=== PATIENT | female | born 1935 | race Caucasian/White ===

== ENCOUNTER 2017-01-14 05:23 | Emergency (ER) | payer MEDICARE ==
[~2017-01-14] VITALS: Ht 162.6 cm; Wt 73.9 kg
[~2017-01-14 05:23] MED LIST: ACET650T10 PO; BIOT800T PO; CA C1TAB38 PO; CHOL400C2 PO; DIPH25CA44 PO; FOLI0.4T2 PO; FURO40TA4 PO; HYDR-2672 PO; LISI40TA PO; MECL25TA3 PO; MESA0.37 PO; METH2.5T PO; OMEP40CA5 PO; POTA10TA12 PO; PRED1TAB2 PO; VITA400C36 PO; orencia
--- NOTE | 2017-01-14 06:28 | PHYS DOC ---
Past Medical History Past Medical History: Arthritis, GERD, Hypertension, Other Additional Past Medical Histor: vertigo colitis Past Surgical History: Other Additional Past Surgical Histo: neurostimulator to back Alcohol Use: Occasionally Drug Use: None Adult General Chief Complaint Chief Complaint: HIP PAIN HPI HPI Patient is a 82 year old female who presents with right hip pain. Patient states she has known severe osteoarthritis and is scheduled for right total hip arthroplasty on 01/[address] White at [facility]. She states this morning her pain was severe with shooting/stabbing pains down her right leg. She took gabapentin and [place] but could not get relief from her pain. She arrives here by EMS and states her pain is starting to resolve. She denies any recent falls or trauma. No fevers or chills, hot/red skin over the hip joint. She lives at the [facility]. Review of Systems Review of Systems Constitutional: Denies fever or chills Respiratory: Denies cough or shortness of breath Cardiovascular: Denies chest pain GI: Denies abdominal pain Musculoskeletal: Reports hip pain Integument: Denies rash Current Medications Current Medications Current Medications Medications (Trade) Dose Ordered Sig/Ellyn Start Time Stop Time Status Last Admin Dose Admin Fentanyl Citrate (Fentanyl 2ml Vial) 50 mcg PRN Q15MIN PRN 01/14/17 06:30 01/15/17 06:29 01/14/17 06:40 50 MCG Allergies Allergies Allergies Coded Allergies Type Severity Reaction Last Updated Verified Penicillins Allergy Intermediate 11/22/14 No Sulfa (Sulfonamide Antibiotics) Allergy Intermediate 11/22/14 No rituximab Allergy Intermediate 08/30/14 Yes Physical Exam Physical Exam Constitutional: Well developed, well nourished, no acute distress, non-toxic appearance. HENT: Normocephalic, atraumatic, bilateral external ears normal, oropharynx moist, nose normal. Eyes: conjunctiva normal, no discharge. Cardiovascular: no edema. Lungs & Thorax: no respiratory distress. Abdomen: nondistended. Skin: Warm, dry, Extremities: right hip no deformity or swelling, mild generalized hip over hip joint, able to flex/extend at hip though flexion limited by pain, intact internal/external rotation with pain, dp/pt 2+, sensation intact to foot. Neurologic: Alert and oriented X 3 Current Patient Data Vital Signs Vital Signs Date Time Temp Pulse Resp B/P (MAP) Pulse Ox O2 Delivery O2 Flow Rate FiO2 01/14/17 05:36 98.1 99 19 189/81 (117) 97 Room Air 98.1 EKG EKG [] Radiology/Procedures Radiology/Procedures [] Course & Med Decision Making Course & Med Decision Making Pertinent Labs and Imaging studies reviewed. (See chart for details) Patient presents with hip pain. States she feels better but becomes tearful with exam. She declines XR, states she just had preop XR at [facility], no new trauma. Will give IM fentanyl to try to improve pain relief. She felt better after fentanyl here, requested discharge home. She plans to follow up with her orthopedic surgeon today when clinic opens. Recommend continue prescribed pain meds & proceed with surgery on . Come back for neurovascular compromise , focal neuro deficit, or otherwise worsening condition. Discharged home in stable & improved condition. [] Dragon Disclaimer Dragon Disclaimer This electronic medical record was generated, in whole or in part, using a voice recognition dictation system. Departure Departure Impression: Primary Impression: Right hip pain Disposition: HOME, SELF-CARE Condition: IMPROVED Referrals: IJEOMA DIETRICH DO (PCP) Patient Instructions: Hip Pain Additional Instructions: You were seen in the emergency department today for hip pain. Your pain improved with treatment here & you declined having x-rays. Please contact your orthopedic surgeon today! Come back if unable to bear weight, for numbness or weakness in your leg, or any otherwise worsening condition. ALYSIA CHÁVEZ MD January 14, 2017 06:28
[2017-01-14] MEDS ORDERED: fentaNYL PF VIAL 100 MCG/2 ML VIAL IM PRN (06:30)
[2017-01-14 07:41] VITALS: BP 135/76
== END 2017-01-14 07:41 | disposition home or self-care (01) ==
LOC: ER 05:23
DX: M25.551 Pain in right hip (principal); K21.9 Gastro-esophageal reflux disease without esophagitis; I10 Essential (primary) hypertension; M16.11 Unilateral primary osteoarthritis, right hip; Z88.0 Allergy status to penicillin; Z88.2 Allergy status to sulfonamides; Z88.8 Allergy status to other drugs, medicaments and biological substances
CPT/HCPCS: 96372; 99284; J3010

== ENCOUNTER 2021-09-08 14:36 | Observation (INO) | payer MEDICARE ==
[~2021-09-08] VITALS: Ht 162.6 cm; Wt 69.1 kg
[~2021-09-08 14:36] MED LIST changes: -FOLI0.4T2 PO; +FOLI0.4T5 PO; -HYDR-2672 PO; +HYDR-2769 PO; +LISI-130 PO; -LISI40TA PO; +MECL-75 PO; -MECL25TA3 PO; -MESA0.37 PO; +MESA0.372 PO; -OMEP40CA5 PO; +OMEP40CA7 PO; -POTA10TA12 PO; +POTASSIUM CHLO10 ME1 PO; +VITA-8 PO; -VITA400C36 PO
[2021-09-08] MEDS ORDERED: IV NORMAL SALINE 1000ML BAG 1,000 ML IV SCH (14:45)
[2021-09-08 14:55] LABS: BASO # 0.1 x10^3/uL (0.0-0.2); BASO % 1 % (0-3); EOS # 0.1 x10^3/uL (0.0-0.7); EOS % 1 % (0-3); HEMATOCRIT 34.8 % (36.0-47.0); HEMOGLOBIN 10.9 g/dL (12.0-15.5); LYMPH # 1.1 x10^3/uL (1.0-4.8); LYMPH % 15 % (24-48); MEAN CORPUSCULAR HEMOGLOBIN 27 pg (25-35); MEAN CORPUSCULAR HGB CONC 31 g/dL (31-37); MEAN CORPUSCULAR VOLUME 86 fL (79-100); MONO # 0.9 x10^3/uL (0.0-1.1); MONO % 12 % (0-9); NEUT # 5.4 x10^3/uL (1.8-7.7); NEUT % 71 % (31-73); PLATELET COUNT 324 x10^3/uL (140-400); RED BLOOD COUNT 4.06 x10^6/uL (3.50-5.40); RED CELL DISTRIBUTION WIDTH 22.5 % (11.5-14.5); WHITE BLOOD COUNT 7.5 x10^3/uL (4.0-11.0)
--- NOTE | 2021-09-08 14:57 | PHYS DOC ---
Past Medical History Past Medical History: Arthritis, GERD, Hypertension, Other Additional Past Medical Histor: vertigo, colitis, RHEUMATOID ARTHRITIS Past Surgical History: Other Additional Past Surgical Histo: neurostimulator to back Smoking Status: Former Smoker Alcohol Use: Occasionally Drug Use: None General Adult HPI: HPI: Patient is a 86 year old female with history of rheumatoid arthritis on Biologics, HTN who presents with slurred speech. LKW approximately 1300 today. Symptoms reportedly improving somewhat. Reports headache today. Was given tylenol prior to arrival. Blood glucose 120's for EMS. No blood thinners on NOV. Denies vision changes, weakness, numbness, facial assymmetry. Review of Systems: Review of Systems: Constitutional: Denies fever or chills. [] Eyes: Denies change in visual acuity. [] HENT: Denies nasal congestion or sore throat. [] Respiratory: Denies cough or shortness of breath. [] Cardiovascular: Denies chest pain or edema. [] GI: Denies abdominal pain, nausea, vomiting, bloody stools or diarrhea. [] : Denies dysuria. [] Musculoskeletal: Denies back pain or joint pain. [] Integument: Denies rash. [] Neurologic: + slurred speech and headache. No focal extremity weakness or sensory changes. [] Endocrine: Denies polyuria or polydipsia. [] Lymphatic: Denies swollen glands. [] Psychiatric: Denies depression or anxiety. [] Heart Score: C/O Chest Pain: No Current Medications: Current Medications Medications (Trade) Dose Ordered Sig/Ellyn Start Time Stop Time Status Last Admin Dose Admin Sodium Chloride 1,000 ml @ 1,000 mls/hr Q1H 09/08/21 14:45 09/08/21 15:44 UNV Allergies: Allergies: Allergies Coded Allergies Type Severity Reaction Last Updated Verified Penicillins Allergy Intermediate 11/22/14 No Sulfa (Sulfonamide Antibiotics) Allergy Intermediate 11/22/14 No rituximab Allergy Intermediate 08/30/14 Yes Physical Exam: PE: Constitutional: Well developed, well nourished, no acute distress, non-toxic appearance. [] HENT: Normocephalic, atraumatic Eyes: PERRLA, EOMI, conjunctiva normal, no discharge. [] Neck: Normal range of motion, no tenderness, supple, no stridor. [] Cardiovascular:Heart rate regular rhythm, no murmur [] Lungs & Thorax: Bilateral breath sounds clear to auscultation [] Abdomen: Bowel sounds normal, soft, no tenderness, no masses, no pulsatile masses. [] Skin: Warm, dry, no erythema, no rash. [] Neurologic: Alert, oriented to person, place, situation. cannot recall age. follows simple commands. EOMI Visual miranda intact No facial droop No extremity drift no sensory deficit no ataxia +1 dysarthria +1 aphasia (difficulty naming objects, cannot repeat phrases exactly) Psychologic: Affect normal, judgement normal, mood normal. [] EKG: EKG: [] Radiology/Procedures: Radiology/Procedures: [] Impression: [facility] [address] [place], [place] [id number] IMAGING REPORT Signed PATIENT: WING DOMINGO ACCOUNT: [id number] : 1935 LOCATION: ER AGE: 86 SEX: F EXAM STATUS: REG ER ORD. PHYSICIAN: KENNEY MONTANA MD REASON: SLURRED SPEECH PROCEDURE: CT CODE STROKE HEAD WO EXAMINATION: CT head without IV contrast. INDICATION:86 years, Female, slurred speech. Code stroke COMPARISON: None TECHNIQUE: Spiral acquisition of contiguous images from the skull base to the vertex were obtained. Sagittal and coronal 2D reformatted series were provided by the technologist. Soft tissue and bone window algorithms were reviewed. Exposure: One or more of the following individualized dose reduction techniques were utilized for this examination: 1. Automated exposure control 2. Adjustment of the mA and/or kV according to patient size 3. Use of iterative reconstruction technique. FINDINGS: Neither mass, midline shift, intracranial hemorrhage, acute/subacute ischemic changes, nor extraaxial fluid collections are seen. Moderate brain parenchymal volume loss. Supratentorial periventricular white matter hypodensities, indeterminate but most likely representing chronic microangiopathic disease. The paranasal sinuses, mastoid air cells, and middle ears are clear.The orbital contents appear within normal limits. IMPRESSION: 1. No evidence of acute intracranial abnormality. 2. Supratentorial periventricular white matter hypodensities, indeterminate but most likely representing chronic microangiopathic disease. FOR INTERNAL CODING PURPOSES Critical result: Findings discussed with KENNEY MONTANA MD at 09/08/2021 3:08 PM. RESULT CODE: (C) Electronically signed by: Kym Cabral MD (09/08/2021 3:10 PM) [facility] DICTATED and SIGNED BY: KYM CABRAL MD DATE: 09/08/21 [id number] 0 Course & Med Decision Making: Course & Med Decision Making Pertinent Labs and Imaging studies reviewed. (See chart for details) 86-year-old female presents with acute onset slurred speech. LKW 1300 today. No other deficits on exam. NIH =3 (cannot recall age, dysarthria, aphasia). Code stroke activated with CT/CTA head/neck. 1457 CT head without acute process. After returning from CT her speech is improving vastly. No evident dysarthria or aphasia is noted now. Evaluated at bedside with neurologist, Dr. Saez, and given improvement decision was made to hold off on tpa. Patient will be admitted to hospitalist for further treatment. [address] [employer] Disclaimer: Dragon Disclaimer: This electronic medical record was generated, in whole or in part, using a voice recognition dictation system. Departure Departure Impression: Primary Impression: TIA (transient ischemic attack) Additional Impressions: Dysarthria Aphasia Disposition: ADMITTED INPATIENT Admitting Physician: YINA Flynn) Condition: IMPROVED Referrals: IJEOMA DIETRICH DO (PCP) NIHSS Stroke Scale NIH Stroke Scale: NIH Stroke Scale Response (Comments) Value Level of Consciousness: 0 Alert/Responsive 0 LOC Questions: 1 Answers one correctly 1 LOC Commands: 0 Performs both tasks 0 Best Gaze: 0 Normal 0 Visual: 0 No visual loss 0 Facial Palsy: 0 Normal, symmetrical 0 Motor - Left Arm 0 No drift 0 Motor - Right Arm 0 No drift 0 Motor - Left Leg 0 No drift 0 Motor: Right Leg 0 No drift 0 Limb Ataxia: 0 Absent 0 Sensory: 0 No loss 0 Best Language: 1 Mild to mod aphasia 1 Dysathria: 1 Mild to moderate 1 Extinction and Inattention: 0 Normal 0 Total 3 KENNEY MONTANA MD Sep 08, 2021 14:57
[2021-09-08 15:06] LABS: PROTHROMBIN TIME PATIENT 12.4 SEC (11.7-14.0)
[2021-09-08 15:09] LABS: CALCIUM 8.3 mg/dL (8.5-10.1); CREATININE 0.9 mg/dL (0.6-1.0); GFR 59.2; POTASSIUM 3.4 mmol/L (3.5-5.1)
--- NOTE | 2021-09-08 15:12 | RAD ---
EXAMINATION: CT head without IV contrast. INDICATION:86 years, Female, slurred speech. Code stroke COMPARISON: None TECHNIQUE: Spiral acquisition of contiguous images from the skull base to the vertex were obtained. S agittal and coronal 2D reformatted series were provided by the technologist. Soft tissue and bone win elizabeth algorithms were reviewed. Exposure: One or more of the following individualized dose reduction techniques were utilized for thi s examination: 1. Automated exposure control 2. Adjustment of the mA and/or kV according to patient size 3. Use of iterative reconstruction technique. FINDINGS: Neither mass, midline shift, intracranial hemorrhage, acute/subacute ischemic changes, nor extraaxial fluid collections are seen. Moderate brain parenchymal volume loss. Supratentorial periventricular w karmen matter hypodensities, indeterminate but most likely representing chronic microangiopathic diseas e. The paranasal sinuses, mastoid air cells, and middle ears are clear.The orbital contents appear withi n normal limits. IMPRESSION: 1. No evidence of acute intracranial abnormality. 2. Supratentorial periventricular white matter hypodensities, indeterminate but most likely represen ting chronic microangiopathic disease. FOR INTERNAL CODING PURPOSES Critical result: Findings discussed with KENNEY MONTANA MD at 09/08/2021 3:08 PM. RESULT CODE: (C) Electronically signed by: Mireya Cabral MD (09/08/2021 3:10 PM) [facility]
[2021-09-08] MEDS ORDERED: CONTRAST GIVEN. MC PRN (15:15)
[2021-09-08] MEDS ORDERED: IOHEXOL 300 MG/ML 100ML VIAL. IV ONE (15:15)
[2021-09-08] MEDS ORDERED: ASPIRIN RECTAL 300 MG SUPP. PR PRN (15:30)
--- NOTE | 2021-09-08 15:42 | PDOC2 ---
NEUROLOGY CONSULT Date of Service DOS: DATE: 09/08/21 TIME: 15:34 Reason for Consult Reason for Consult: Stroke symptoms Referring Physician Referring Physician: Dr. Jarrett Source Source: Caregiver (Son), Chart review, Patient History of Present Illness History of Present Illness The patient is an 86-year-old right-handed female last known normal 1300 today. She was noticed to have slurred speech, difficulty getting her words out. She says that she does not not feel like she can get her words out. There is no prior history of stroke, seizure, or head injury. Note elevated blood pressures in the emergency department. She does not usually run that high. She has had no prior history of stroke, seizure, or head injury. She does have severe rheumatoid arthritis and mostly is in a wheelchair. She is on Biologics for treatment. During her time in the emergency department she has had marked improvement in her speech symptoms and continues to have a nonfocal examination. Son says that she has had some increasing memory loss over the last several months. Past Medical History Cardiovascular: HTN CENTRAL NERVOUS SYSTEM: Vertigo (Not recently) GI: GERD, Inflam bowel disease Rheumatologic: Rheumatoid arthritis Renal/: Chronic renal insuff (CKD III), UTI Past Surgical History Past Surgical History: Other (Nerve stimulator) Family History Family History: No pertinent hx Social History Social History , lives in assisted living, rare alcohol, no tobacco Current Medications Current Medications Current Medications Sodium Chloride 1,000 ml @ 1,000 mls/hr Q1H IV ; Start 09/08/21 at 14:45; Stop 09/08/21 at 15:44 Iohexol (Omnipaque 300 Mg/ml) 60 ml 1X ONCE IV Last administered on 09/08/21at 15:10; Start 09/08/21 at 15:15; Stop 09/08/21 at 15:16; Status DC Info (CONTRAST GIVEN -- Rx MONITORING) 1 each PRN DAILY PRN MC SEE COMMENTS; Start 09/08/21 at 15:15; Stop 09/10/21 at 15:14 Active Scripts Active Reported [orencia] Lisinopril 40 Mg Tablet 1 Tab PO DAILY Meclizine Hcl 25 Mg Tablet 25 Mg PO Q4HRS PRN Biotin 800 Mcg Tablet 1,000 Mcg PO DAILYWBKFT Calcium + D Soft Chewable Tab (Ca Carbonate/Vitamin D3/Vit K) 1 Each Tab.chew 1 Each PO BID Hydrocodone-Apap 10-325 (Hydrocodone Bit/Acetaminophen) 1 Each Tablet 0.5 Tab PO Q4HRS PRN Potassium Chloride 10 Meq Tablet.er 1 Tab PO QODAY Furosemide 40 Mg Tablet 1 Tab PO QODAY Apriso (Mesalamine) 0.375 Gm Cap.er.24h 2 Cap PO BID Omeprazole 40 Mg Capsule.dr 2 Cap PO DAILY Arthritis Pain Reliever (Acetaminophen) 650 Mg Tablet.er 1,300 Mg PO BID Allergy Medication (Diphenhydramine Hcl) 25 Mg Capsule 180 Mg PO DAILY Vitamin E (Vitamin E Mixed) 400 Unit Capsule 400 Unit PO DAILY Vitamin D (Cholecalciferol (Vitamin D3)) 400 Unit Capsule 400 Unit PO DAILY Prednisone 1 Mg Tablet 1 Mg PO DAILY Folic Acid 0.4 Mg Tablet 0.4 Mg PO DAILY Methotrexate (Methotrexate Sodium) 2.5 Mg Tablet 6 Tab PO WEEKLY Allergies Allergies: Coded Allergies: Penicillins (Unverified Allergy, Intermediate, 11/22/14) Sulfa (Sulfonamide Antibiotics) (Unverified Allergy, Intermediate, 11/22/14) rituximab (Verified Allergy, Intermediate, 08/30/14) ROS Review of System Negative for fever, chills, weight loss, shortness of breath, chest pain, indigestion, hematochezia, melena, and dysuria. Full 14-point review of systems is negative. Physical Exam Physical Examination General: Well-developed, well-nourished, white female, in no acute distress HEENT: Normocephalic andatraumatic.Temporal arteriespulsatile and nontender. Neck: Supple without bruit, no meningismus Musculoskeletal: Stability:see neurologic. Gait exam:see neurologic. Tone:see neurologic.Strength:see neurologic. Neurological: Mental Status:intact, orientation, memory, attention span/concentration, language, fund of knowledge normal. Cranial Nerves:Pupils equal and reactive to light, extraocular movements areintact, visual miranda are full to confrontation. Facial sensation is normal. There is no facial asymmetry. Vestibulo-ocular reflex is intact. Palate elevates and tongue protrudes in midline. All other cranial related problems are negative except as mentioned before.Reflexes:2+ and symmetric with flexor plantar responses. Motor:4/5 strength with normal tone and bulk. Coordination:Finger-nose finger and [id number] testing are normal. Rapid alternating movements and fine finger movements are intact. Gait:Not tested. Sensory:Normal pinprick, vibration, light touch, proprioception. Labs Labs Laboratory Tests Test 09/08/21 14:45 White Blood Count 7.5 x10^3/uL (4.0-11.0) Red Blood Count 4.06 x10^6/uL (3.50-5.40) Hemoglobin 10.9 g/dL (12.0-15.5) Hematocrit 34.8 % (36.0-47.0) Mean Corpuscular Volume 86 fL (79-100) Mean Corpuscular Hemoglobin 27 pg (25-35) Mean Corpuscular Hemoglobin Concent 31 g/dL (31-37) Red Cell Distribution Width 22.5 % (11.5-14.5) Platelet Count 324 x10^3/uL (140-400) Neutrophils (%) (Auto) 71 % (31-73) Lymphocytes (%) (Auto) 15 % (24-48) Monocytes (%) (Auto) 12 % (0-9) Eosinophils (%) (Auto) 1 % (0-3) Basophils (%) (Auto) 1 % (0-3) Neutrophils # (Auto) 5.4 x10^3/uL (1.8-7.7) Lymphocytes # (Auto) 1.1 x10^3/uL (1.0-4.8) Monocytes # (Auto) 0.9 x10^3/uL (0.0-1.1) Eosinophils # (Auto) 0.1 x10^3/uL (0.0-0.7) Basophils # (Auto) 0.1 x10^3/uL (0.0-0.2) Prothrombin Time 12.4 SEC (11.7-14.0) Prothromb Time International Ratio 0.9 (0.8-1.1) Activated Partial Thromboplast Time 29 SEC (24-38) Sodium Level 139 mmol/L (136-145) Potassium Level 3.4 mmol/L (3.5-5.1) Chloride Level 98 mmol/L (98-107) Carbon Dioxide Level 31 mmol/L (21-32) Anion Gap 10 (6-14) Blood Urea Nitrogen 14 mg/dL (7-20) Creatinine 0.9 mg/dL (0.6-1.0) Estimated GFR (Cockcroft-Gault) 59.2 Glucose Level 109 mg/dL (70-99) Calcium Level 8.3 mg/dL (8.5-10.1) Troponin I High Sensitivity 14 ng/L (4-50) Laboratory Tests Test 09/08/21 14:45 White Blood Count 7.5 x10^3/uL (4.0-11.0) Red Blood Count 4.06 x10^6/uL (3.50-5.40) Hemoglobin 10.9 g/dL (12.0-15.5) Hematocrit 34.8 % (36.0-47.0) Mean Corpuscular Volume 86 fL (79-100) Mean Corpuscular Hemoglobin 27 pg (25-35) Mean Corpuscular Hemoglobin Concent 31 g/dL (31-37) Red Cell Distribution Width 22.5 % (11.5-14.5) Platelet Count 324 x10^3/uL (140-400) Neutrophils (%) (Auto) 71 % (31-73) Lymphocytes (%) (Auto) 15 % (24-48) Monocytes (%) (Auto) 12 % (0-9) Eosinophils (%) (Auto) 1 % (0-3) Basophils (%) (Auto) 1 % (0-3) Neutrophils # (Auto) 5.4 x10^3/uL (1.8-7.7) Lymphocytes # (Auto) 1.1 x10^3/uL (1.0-4.8) Monocytes # (Auto) 0.9 x10^3/uL (0.0-1.1) Eosinophils # (Auto) 0.1 x10^3/uL (0.0-0.7) Basophils # (Auto) 0.1 x10^3/uL (0.0-0.2) Prothrombin Time 12.4 SEC (11.7-14.0) Prothromb Time International Ratio 0.9 (0.8-1.1) Activated Partial Thromboplast Time 29 SEC (24-38) Sodium Level 139 mmol/L (136-145) Potassium Level 3.4 mmol/L (3.5-5.1) Chloride Level 98 mmol/L (98-107) Carbon Dioxide Level 31 mmol/L (21-32) Anion Gap 10 (6-14) Blood Urea Nitrogen 14 mg/dL (7-20) Creatinine 0.9 mg/dL (0.6-1.0) Estimated GFR (Cockcroft-Gault) 59.2 Glucose Level 109 mg/dL (70-99) Calcium Level 8.3 mg/dL (8.5-10.1) Troponin I High Sensitivity 14 ng/L (4-50) Images Images CT head without IV contrast. INDICATION:86 years, Female, slurred speech. Code stroke COMPARISON: None TECHNIQUE: Spiral acquisition of contiguous images from the skull base to the vertex were obtained. Sagittal and coronal 2D reformatted series were provided by the technologist. Soft tissue and bone window algorithms were reviewed. Exposure: One or more of the following individualized dose reduction techniques were utilized for this examination: 1. Automated exposure control 2. Adjustment of the mA and/or kV according to patient size 3. Use of iterative reconstruction technique. FINDINGS: Neither mass, midline shift, intracranial hemorrhage, acute/subacute ischemic changes, nor extraaxial fluid collections are seen. Moderate brain parenchymal volume loss. Supratentorial periventricular white matter hypodensities, indet erminate but most likely representing chronic microangiopathic disease. The paranasal sinuses, mastoid air cells, and middle ears are clear.The orbital contents appear within normal limits. IMPRESSION: 1. No evidence of acute intracranial abnormality. 2. Supratentorial periventricular white matter hypodensities, indeterminate but most likely representing chronic microangiopathic disease. Assessment/Plan Assessment/Plan Impression: Transient ischemic attack symptoms, no evidence of stroke, most likely this is hypertensive encephalopathy. Early dementia, but she is bright and alert now Rheumatoid arthritis, hypertension, general debility Recommendations: Permissive hypertension for now Start aspirin Rehabilitation modalities MRI of the brain unless her stimulator is still present, then I would cancel this Tighten up blood pressure starting tomorrow Not a candidate for alteplase given the rapid resolution of symptoms Discussed with Drs. Galloway and Kolby Also discussed with patient's son. Thank you for letting me help with the patient's care. MELQUIADES WANG MD Sep 08, 2021 15:42
--- NOTE | 2021-09-08 15:48 | RAD ---
EXAMINATION: CTA HEAD AND NECK W/WO CONTRAST INDICATION:86 years, Female, slurred speech. TECHNIQUE: After bolus of intravenous contrast, volumetric CT data acquisition was acquired of the he ad and neck. Multiplanar reconstruction images to include MIP and 3-D reconstruction images are submi tted. Exposure: One or more of the following individualized dose reduction techniques were utilized for thi s examination: 1. Automated exposure control 2. Adjustment of the mA and/or kV according to patient size 3. Use of iterative reconstruction technique. COMPARISON: None FINDINGS: Any determination of stenosis is based on NASCET criteria. Head CTA: ICA: No stenosis, occlusion or aneurysm. Minimal atherosclerotic calcifications at the cavernous segm ents without significant stenosis. MCA: No stenosis, occlusion or aneurysm. GUSTAVO: No stenosis, occlusion or aneurysm. IT GENERALIST: No stenosis, occlusion or aneurysm. origin of the right ECA. Basilar artery: No stenosis, occlusion or aneurysm. Distal vertebral arteries: No stenosis, occlusion or aneurysm. CT angiogram neck: Aortic arch: Mild atherosclerotic disease. Left vertebral artery arises directly from the aortic arch . Common carotid arteries: No stenosis, occlusion or dissection. Atherosclerotic calcifications at the carotid bulbs without significant stenosis. Internal carotid arteries: No stenosis, occlusion or dissection. Retropharyngeal course of the right internal carotid artery. External carotid arteries: Patent Vertebral arteries: No stenosis, occlusion or dissection. Imaged lung apices demonstrate subpleural reticulations. Soft tissues appear normal. Bones: No pathologic osseous lesions. Severe degenerative changes in the cervical spine. Grade 1 ante rolisthesis of C2 over C3. IMPRESSION: No arterial stenosis or occlusion within the head or neck. FOR INTERNAL CODING PURPOSES Critical result: Findings discussed with KENNEY MONTANA MD at 09/08/2021 3:45 PM. RESULT CODE: (C) Electronically signed by: Mireya Cabral MD (09/08/2021 3:45 PM) [facility]
[2021-09-08] MEDS: ASPIRIN ENTERIC COATED 81 MG TABLET.DR. PO SCH (16:00)
[2021-09-08 16:05] LABS: CHOLESTEROL/HDL RATIO 2.7
[2021-09-08] MEDS: ACETAMINOPHEN 325 MG TABLET. PO PRN (16:29)
[2021-09-08 16:37] LABS: PLT ESTIMATE ADEQUATE (ADEQUATE); TOXIC GRANULATION SLIGHT
[2021-09-08 16:38] LABS: ANISOCYTOSIS MOD
[2021-09-08 16:39] LABS: ACANTHOCYTES OCC; OVALOCYTES OCC
--- NOTE | 2021-09-08 16:53 | PDOC1 ---
History and Physical Date of Admission Date of Admission DATE: 09/08/21 TIME: 16:48 History of Present Illness History of Present Illness Ms. Olivier is a 86 year old female who lives at the [facility]. Today, she was fine this AM, then near lunch time had a sudden change of confusion and an inablity to speak. Before lunch and she did not eat, she was confused and says she couldnt get words out. She is not aware of the date currently and is still a little confused compared to her baseline per her son. She has a history of rheumatoid arthritis on methotrexate , HTN w She complains of headache, and is getting her second dose of tylenol now. Blood glucose 120's for EMS. BP was greater than 200 in ER, now down to 180 No blood thinners taken Past Medical History Cardiovascular: HTN CENTRAL NERVOUS SYSTEM: Vertigo (Not recently) GI: GERD, Inflam bowel disease Rheumatologic: Rheumatoid arthritis Renal/: Chronic renal insuff (CKD III), UTI Past Surgical History Past Surgical History: Other (Nerve stimulator) Social History Smoke: No ALCOHOL: none Drugs: None Current Problem List Problem List Problems Medical Problems: (1) Aphasia Status: Acute (2) Dysarthria Status: Acute Current Medications Current Medications Current Medications Sodium Chloride 1,000 ml @ 1,000 mls/hr Q1H IV ; Start 09/08/21 at 14:45; Stop 09/08/21 at 15:44; Status DC Iohexol (Omnipaque 300 Mg/ml) 60 ml 1X ONCE IV Last administered on 09/08/21at 15:10; Start 09/08/21 at 15:15; Stop 09/08/21 at 15:16; Status DC Info (CONTRAST GIVEN -- Rx MONITORING) 1 each PRN DAILY PRN MC SEE COMMENTS; Start 09/08/21 at 15:15; Stop 09/10/21 at 15:14 Acetaminophen (Tylenol) 650 mg PRN Q6HRS PRN PO MILD PAIN / TEMP > 100.3'F; Start 09/08/21 at 15:30 Aspirin (Ecotrin) 81 mg DAILYWBKFT PO ; Start 09/08/21 at 16:00 Aspirin (Aspirin Rectal Supp) 300 mg PRN DAILY PRN ID IF UNABLE TO TAKE PO; Start 09/08/21 at 15:30 Active Scripts Active Reported [orencia] Lisinopril 40 Mg Tablet 1 Tab PO DAILY Meclizine Hcl 25 Mg Tablet 25 Mg PO Q4HRS PRN Biotin 800 Mcg Tablet 1,000 Mcg PO DAILYWBKFT Calcium + D Soft Chewable Tab (Ca Carbonate/Vitamin D3/Vit K) 1 Each Tab.chew 1 Each PO BID Hydrocodone-Apap 10-325 (Hydrocodone Bit/Acetaminophen) 1 Each Tablet 0.5 Tab PO Q4HRS PRN Potassium Chloride 10 Meq Tablet.er 1 Tab PO QODAY Furosemide 40 Mg Tablet 1 Tab PO QODAY Apriso (Mesalamine) 0.375 Gm Cap.er.24h 2 Cap PO BID Omeprazole 40 Mg Capsule.dr 2 Cap PO DAILY Arthritis Pain Reliever (Acetaminophen) 650 Mg Tablet.er 1,300 Mg PO BID Allergy Medication (Diphenhydramine Hcl) 25 Mg Capsule 180 Mg PO DAILY Vitamin E (Vitamin E Mixed) 400 Unit Capsule 400 Unit PO DAILY Vitamin D (Cholecalciferol (Vitamin D3)) 400 Unit Capsule 400 Unit PO DAILY Prednisone 1 Mg Tablet 1 Mg PO DAILY Folic Acid 0.4 Mg Tablet 0.4 Mg PO DAILY Methotrexate (Methotrexate Sodium) 2.5 Mg Tablet 6 Tab PO WEEKLY Allergies Allergies: Coded Allergies: Penicillins (Unverified Allergy, Intermediate, 11/22/14) Sulfa (Sulfonamide Antibiotics) (Unverified Allergy, Intermediate, 11/22/14) rituximab (Verified Allergy, Intermediate, 08/30/14) ROS Review of System Denies vision changes, weakness, numbness, facial assymmetry. General: No: Chills, Night Sweats, Fatigue, Malaise, Appetite, Other PSYCHOLOGICAL ROS: No: Anxiety, Behavioral Disorder, Concentration difficultie, Decreased libido, Depression, Disorientation, Hallucinations, Hostility, Irritablity, Memory difficulties, Mood Swings, Obsessive thoughts, Physical abuse, Sexual abuse, Sleep disturbances, Suicidal ideation, Other Eyes: No Blurry vision, No Decreased vision, No Double vision, No Dry eyes, No Excessive tearing, No Eye Pain, No Itchy Eyes, No Loss of vision, No Photophobia, No Scotomata, No Uses contacts, No Uses glasses, No Other HEENT: YES: Heacaches; No: Hearing change, Nasal congestion, Nasal discharge, Oral lesions, Sinus pain, Sore Throat, Epistaxis, Sneezing, Snoring, Tinnitus, Vertigo, Vocal changes, Other Hematological and Lymphatic: No: Bleeding Problems, Blood Clots, Blood Transfusions, Brusing, Night Sweats, Pallor, Swollen Lymph Nodes, Other ENDOCRINE: No: Breast Changes, Galactorrhea, Hair Pattern Changes, Hot Flashes, Malaise/lethargy, Mood Swings, Palpitations, Polydipsia/polyuria, Skin Changes, Temperature Intolerance, Unexpected Weight Changes, Other Respiratory: No: Cough, Hemoptysis, Orthopnea, Pleuritic Pain, Shortness of breath, SOB with excertion, Sputum Changes, Stridor, Tachypnea, Wheezing, Other Cardiovascular: No Chest Pain, No Palpitations, No Orthopnea, No Paroxysmal Noc. Dyspnea, No Edema, No Lt Headedness, No Other Gastrointestinal: No Nausea, No Vomiting, No Abdominal Pain, No Diarrhea, No Constipation, No Melena, No Hematochezia, No Other Genitourinary: No Dysuria, No Frequency, No Incontinence, No Hematuria, No Retention, No Discharge, No Urgency, No Pain, No Flank Pain, No Other, No , No , No , No , No , No , No Musculoskeletal: Yes Joint Pain, Yes Joint Stiffness, Yes Joint Swelling; No Gait Disturbance, No Muscle Pain, No Muscular Weakness, No Pain In:, No Swelling In:, No Other Neurological: No Behavorial Changes, No Bowel/Bladder ControlChng, No Confusion, No Dizziness, No Gait Disturbance, No Headaches, No Impaired Coord/balance, No Memory Loss, No Numbness/Tingling, No Seizures, No Speech Problems, No Tremors, No Visual Changes, No Weakness, No Other Skin: Yes Dry Skin Physical Exam General: Alert, Oriented X3, Cooperative, No acute distress HEENT: Atraumatic, PERRLA, Mucous membr. moist/pink Heart: S1S2, RRR, no gallops, no murmurs Extremities: No cyanosis Skin: No breakdown, No significant lesion Neuro: Normal speech, Normal tone Psych/Mental Status: Mood NL Vitals Vitals Vital Signs Date Time Temp Pulse Resp B/P (MAP) Pulse Ox O2 Delivery O2 Flow Rate FiO2 09/08/21 15:58 72 16 189/85 (119) 92 Room Air 09/08/21 14:38 97.7 97.7 Labs Labs Laboratory Tests Test 09/08/21 14:45 White Blood Count 7.5 x10^3/uL (4.0-11.0) Red Blood Count 4.06 x10^6/uL (3.50-5.40) Hemoglobin 10.9 g/dL (12.0-15.5) Hematocrit 34.8 % (36.0-47.0) Mean Corpuscular Volume 86 fL (79-100) Mean Corpuscular Hemoglobin 27 pg (25-35) Mean Corpuscular Hemoglobin Concent 31 g/dL (31-37) Red Cell Distribution Width 22.5 % (11.5-14.5) Platelet Count 324 x10^3/uL (140-400) Neutrophils (%) (Auto) 71 % (31-73) Lymphocytes (%) (Auto) 15 % (24-48) Monocytes (%) (Auto) 12 % (0-9) Eosinophils (%) (Auto) 1 % (0-3) Basophils (%) (Auto) 1 % (0-3) Neutrophils # (Auto) 5.4 x10^3/uL (1.8-7.7) Lymphocytes # (Auto) 1.1 x10^3/uL (1.0-4.8) Monocytes # (Auto) 0.9 x10^3/uL (0.0-1.1) Eosinophils # (Auto) 0.1 x10^3/uL (0.0-0.7) Basophils # (Auto) 0.1 x10^3/uL (0.0-0.2) Toxic Granulation Slight Platelet Estimate Adequate (ADEQUATE) Large Platelets Mod Anisocytosis Mod Ovalocytes Occ Acanthocytes Occ Prothrombin Time 12.4 SEC (11.7-14.0) Prothromb Time International Ratio 0.9 (0.8-1.1) Activated Partial Thromboplast Time 29 SEC (24-38) Sodium Level 139 mmol/L (136-145) Potassium Level 3.4 mmol/L (3.5-5.1) Chloride Level 98 mmol/L (98-107) Carbon Dioxide Level 31 mmol/L (21-32) Anion Gap 10 (6-14) Blood Urea Nitrogen 14 mg/dL (7-20) Creatinine 0.9 mg/dL (0.6-1.0) Estimated GFR (Cockcroft-Gault) 59.2 Glucose Level 109 mg/dL (70-99) Calcium Level 8.3 mg/dL (8.5-10.1) Troponin I High Sensitivity 14 ng/L (4-50) Triglycerides Level 74 mg/dL (0-150) Cholesterol Level 194 mg/dL (0-200) LDL Cholesterol, Calculated 106 mg/dL (0-100) VLDL Cholesterol, Calculated 15 mg/dL (0-40) Non-HDL Cholesterol Calculated 121 mg/dL (0-129) HDL Cholesterol 73 mg/dL (40-60) Cholesterol/HDL Ratio 2.7 Laboratory Tests Test 09/08/21 14:45 White Blood Count 7.5 x10^3/uL (4.0-11.0) Red Blood Count 4.06 x10^6/uL (3.50-5.40) Hemoglobin 10.9 g/dL (12.0-15.5) Hematocrit 34.8 % (36.0-47.0) Mean Corpuscular Volume 86 fL (79-100) Mean Corpuscular Hemoglobin 27 pg (25-35) Mean Corpuscular Hemoglobin Concent 31 g/dL (31-37) Red Cell Distribution Width 22.5 % (11.5-14.5) Platelet Count 324 x10^3/uL (140-400) Neutrophils (%) (Auto) 71 % (31-73) Lymphocytes (%) (Auto) 15 % (24-48) Monocytes (%) (Auto) 12 % (0-9) Eosinophils (%) (Auto) 1 % (0-3) Basophils (%) (Auto) 1 % (0-3) Neutrophils # (Auto) 5.4 x10^3/uL (1.8-7.7) Lymphocytes # (Auto) 1.1 x10^3/uL (1.0-4.8) Monocytes # (Auto) 0.9 x10^3/uL (0.0-1.1) Eosinophils # (Auto) 0.1 x10^3/uL (0.0-0.7) Basophils # (Auto) 0.1 x10^3/uL (0.0-0.2) Toxic Granulation Slight Platelet Estimate Adequate (ADEQUATE) Large Platelets Mod Anisocytosis Mod Ovalocytes Occ Acanthocytes Occ Prothrombin Time 12.4 SEC (11.7-14.0) Prothromb Time International Ratio 0.9 (0.8-1.1) Activated Partial Thromboplast Time 29 SEC (24-38) Sodium Level 139 mmol/L (136-145) Potassium Level 3.4 mmol/L (3.5-5.1) Chloride Level 98 mmol/L (98-107) Carbon Dioxide Level 31 mmol/L (21-32) Anion Gap 10 (6-14) Blood Urea Nitrogen 14 mg/dL (7-20) Creatinine 0.9 mg/dL (0.6-1.0) Estimated GFR (Cockcroft-Gault) 59.2 Glucose Level 109 mg/dL (70-99) Calcium Level 8.3 mg/dL (8.5-10.1) Troponin I High Sensitivity 14 ng/L (4-50) Triglycerides Level 74 mg/dL (0-150) Cholesterol Level 194 mg/dL (0-200) LDL Cholesterol, Calculated 106 mg/dL (0-100) VLDL Cholesterol, Calculated 15 mg/dL (0-40) Non-HDL Cholesterol Calculated 121 mg/dL (0-129) HDL Cholesterol 73 mg/dL (40-60) Cholesterol/HDL Ratio 2.7 VTE Prophylaxis Ordered VTE Prophylaxis Devices: Yes VTE Pharmacological Prophylaxi: No Assessment/Plan Assessment/Plan accelerated hypertension, hypertensive emergency TIA code stroke called weakness, debility Rheumatoid arthritis htn Chronic diastolic CHF, lasix Justifications for Admission TIA Indications Hemodynamically unstable?: Yes Persistent neurologic signs?: No Cardiomyopathy/Valvular diseas: No Severe hypertension?: Yes Cardiac arrhythmia?: No Other Justification HARLAN PALMA MD Sep 08, 2021 16:53
[2021-09-08] MEDS: FUROSEMIDE 20 MG TABLET PO SCH (17:00)
[2021-09-08] MEDS ORDERED: HYDROcodone/APAP 5/325MG 1 TAB TABLET PO PRN (17:00)
[2021-09-08] MEDS ORDERED: POTASSIUM CHLORIDE 20 MEQ TABLET.ER. PO ONE (17:00)
[2021-09-08 18:00] VITALS: BP 191/86
--- NOTE | 2021-09-08 18:24 | EKG ---
[facility] [address] [place] [address] Test Date: 2021-09-08 Test Time: 15:18:10 Pat Name: WING DOMINGO Department: Room: 4 Gender: F Filler Spreader: : [id number] Requested By: KENNEY MONTANA Order Number: [id number] Reading MD: Luis Alberto Akers Measurements Intervals [place] Rate: 77 P: -34 ID: [id number] QRS: -25 QRSD: 74 T: 0 QT: 392 QTc: 445 Interpretive Statements SINUS RHYTHM LEFTWARD AXIS CONSIDER LEFT VENTRICULAR HYPERTROPHY T ABNORMALITY IN INFERIOR LEADS ABNORMAL ECG Electronically Signed On 09-10-2021 10:23:00 QUALITY RN by Luis Alberto Akers
[2021-09-08 19:30] VITALS: BP 171/95
[2021-09-08] MEDS: ACETAMINOPHEN 325 MG TABLET. PO SCH (21:00)
[2021-09-08 23:26] VITALS: BP 181/82
[2021-09-09 03:35] VITALS: BP 218/86
[2021-09-09] MEDS: LISINOPRIL 20 MG TABLET PO SCH (05:20)
[2021-09-09 07:00] VITALS: BP 209/86
[2021-09-09] MEDS: PANTOPRAZOLE 40 MG TABLET.DR. PO SCH (07:30)
[2021-09-09] MEDS: ASPIRIN ENTERIC COATED 81 MG TABLET.DR. PO SCH (08:00)
[2021-09-09] MEDS ORDERED: NON FORMULARY ITEM (Biotin 1,000 MCG) PO SCH (08:00)
[2021-09-09] MEDS: predniSONE 1 MG TABLET PO SCH (09:00)
[2021-09-09] MEDS: ACETAMINOPHEN 325 MG TABLET. PO SCH ×2 (09:00→20:55)
[2021-09-09] MEDS: FUROSEMIDE 20 MG TABLET PO SCH (09:00)
[2021-09-09] MEDS ORDERED: LABETALOL 20 MG/4 ML DISP.SYRIN. IVP PRN (09:15)
[2021-09-09] MEDS ORDERED: hydrALAZINE 20 MG/ML VIAL. IVP PRN (09:15)
[2021-09-09 11:00] VITALS: BP 171/79
--- NOTE | 2021-09-09 13:34 | NUR ---
Bedside Swallow Evaluation completed. Please refer to full report in intervention section for additional information. Impressions: Mild pharyngeal dysphagia w/ immediate s/s aspiration w/ straw drinking of thin liquids. Cup drinking and spoon trials of thin liquids, trials of honey thin liquids, puree and solids were WFL and no s/s aspiration observed. Pt appears at low risk of aspiration for regular diet and thin liquids w/ general swallow precautions and eliminating straw drinking. Recommendations: Initiate regular diet w/ thin liquids/NO straws. General swallow precautions. ST f/u 1-2 visits to assess swallow safety on recommended diet. D/w pt, pt's 2 sons Brian and TYREL Hedrick-Opal and precations posted in room.
--- NOTE | 2021-09-09 13:50 | PDOC ---
PROGRESS NOTES Date of Service DATE: 09/09/21 TIME: 13:46 Assessment Problems Medical Problems: (1) Aphasia Status: Acute (2) Dysarthria Status: Acute Transient ischemic attack symptoms, no evidence of stroke, most likely this is hypertensive encephalopathy. She continues to have elevated blood pressure, nurse believes this is related to agitation when she is confused Early dementia Rheumatoid arthritis, hypertension, general debility Note elevated lipids and hemoglobin A1c Plan Tighten blood pressure parameters to 150/90 Aspirin Rehabilitation modalities No MRI due to spinal cord stimulator, I will repeat her head CT Lipid and glucose management per internal medicine Home if CT follow-up is negative and blood pressure controlled Discussed with patient's sons. Subjective Has some headache Objective Vital Signs Date Time Temp Pulse Resp B/P (MAP) Pulse Ox O2 Delivery O2 Flow Rate FiO2 09/09/21 09:27 72 205/86 09/09/21 03:35 98.1 22 92 Room Air 98.1 Intake and Output 09/09/21 07:00 Output Total 250 ml Balance -250 ml Output Urine Total 250 ml # Bowel Movements 1 PHYSICAL EXAM Temporal arteries pulsatile nontender Alert. Oriented to place and person, off on date. Names and repeats well except has trouble naming a stethoscope. PERRL. EOMI. CN: no focal findings. Muscle tone: normal. Muscle strength: 4/5 DTR: 1+ Plantar reflex: Flexor Gait: not examined in bed. Sensory exam: no abnormal findings. No cerebellar signs elicited. Review of Relevant I have reviewed the following items jesica (where applicable) has been applied. Labs Laboratory Tests Test 09/08/21 14:45 White Blood Count 7.5 x10^3/uL (4.0-11.0) Red Blood Count 4.06 x10^6/uL (3.50-5.40) Hemoglobin 10.9 g/dL (12.0-15.5) Hematocrit 34.8 % (36.0-47.0) Mean Corpuscular Volume 86 fL (79-100) Mean Corpuscular Hemoglobin 27 pg (25-35) Mean Corpuscular Hemoglobin Concent 31 g/dL (31-37) Red Cell Distribution Width 22.5 % (11.5-14.5) Platelet Count 324 x10^3/uL (140-400) Neutrophils (%) (Auto) 71 % (31-73) Lymphocytes (%) (Auto) 15 % (24-48) Monocytes (%) (Auto) 12 % (0-9) Eosinophils (%) (Auto) 1 % (0-3) Basophils (%) (Auto) 1 % (0-3) Neutrophils # (Auto) 5.4 x10^3/uL (1.8-7.7) Lymphocytes # (Auto) 1.1 x10^3/uL (1.0-4.8) Monocytes # (Auto) 0.9 x10^3/uL (0.0-1.1) Eosinophils # (Auto) 0.1 x10^3/uL (0.0-0.7) Basophils # (Auto) 0.1 x10^3/uL (0.0-0.2) Toxic Granulation Slight Platelet Estimate Adequate (ADEQUATE) Large Platelets Mod Anisocytosis Mod Ovalocytes Occ Acanthocytes Occ Prothrombin Time 12.4 SEC (11.7-14.0) Prothromb Time International Ratio 0.9 (0.8-1.1) Activated Partial Thromboplast Time 29 SEC (24-38) Sodium Level 139 mmol/L (136-145) Potassium Level 3.4 mmol/L (3.5-5.1) Chloride Level 98 mmol/L (98-107) Carbon Dioxide Level 31 mmol/L (21-32) Anion Gap 10 (6-14) Blood Urea Nitrogen 14 mg/dL (7-20) Creatinine 0.9 mg/dL (0.6-1.0) Estimated GFR (Cockcroft-Gault) 59.2 Glucose Level 109 mg/dL (70-99) Hemoglobin A1c 6.0 % (4.8-5.6) Calcium Level 8.3 mg/dL (8.5-10.1) Troponin I High Sensitivity 14 ng/L (4-50) Triglycerides Level 74 mg/dL (0-150) Cholesterol Level 194 mg/dL (0-200) LDL Cholesterol, Calculated 106 mg/dL (0-100) VLDL Cholesterol, Calculated 15 mg/dL (0-40) Non-HDL Cholesterol Calculated 121 mg/dL (0-129) HDL Cholesterol 73 mg/dL (40-60) Cholesterol/HDL Ratio 2.7 Laboratory Tests Test 09/08/21 14:45 White Blood Count 7.5 x10^3/uL (4.0-11.0) Red Blood Count 4.06 x10^6/uL (3.50-5.40) Hemoglobin 10.9 g/dL (12.0-15.5) Hematocrit 34.8 % (36.0-47.0) Mean Corpuscular Volume 86 fL (79-100) Mean Corpuscular Hemoglobin 27 pg (25-35) Mean Corpuscular Hemoglobin Concent 31 g/dL (31-37) Red Cell Distribution Width 22.5 % (11.5-14.5) Platelet Count 324 x10^3/uL (140-400) Neutrophils (%) (Auto) 71 % (31-73) Lymphocytes (%) (Auto) 15 % (24-48) Monocytes (%) (Auto) 12 % (0-9) Eosinophils (%) (Auto) 1 % (0-3) Basophils (%) (Auto) 1 % (0-3) Neutrophils # (Auto) 5.4 x10^3/uL (1.8-7.7) Lymphocytes # (Auto) 1.1 x10^3/uL (1.0-4.8) Monocytes # (Auto) 0.9 x10^3/uL (0.0-1.1) Eosinophils # (Auto) 0.1 x10^3/uL (0.0-0.7) Basophils # (Auto) 0.1 x10^3/uL (0.0-0.2) Toxic Granulation Slight Platelet Estimate Adequate (ADEQUATE) Large Platelets Mod Anisocytosis Mod Ovalocytes Occ Acanthocytes Occ Prothrombin Time 12.4 SEC (11.7-14.0) Prothromb Time International Ratio 0.9 (0.8-1.1) Activated Partial Thromboplast Time 29 SEC (24-38) Sodium Level 139 mmol/L (136-145) Potassium Level 3.4 mmol/L (3.5-5.1) Chloride Level 98 mmol/L (98-107) Carbon Dioxide Level 31 mmol/L (21-32) Anion Gap 10 (6-14) Blood Urea Nitrogen 14 mg/dL (7-20) Creatinine 0.9 mg/dL (0.6-1.0) Estimated GFR (Cockcroft-Gault) 59.2 Glucose Level 109 mg/dL (70-99) Hemoglobin A1c 6.0 % (4.8-5.6) Calcium Level 8.3 mg/dL (8.5-10.1) Troponin I High Sensitivity 14 ng/L (4-50) Triglycerides Level 74 mg/dL (0-150) Cholesterol Level 194 mg/dL (0-200) LDL Cholesterol, Calculated 106 mg/dL (0-100) VLDL Cholesterol, Calculated 15 mg/dL (0-40) Non-HDL Cholesterol Calculated 121 mg/dL (0-129) HDL Cholesterol 73 mg/dL (40-60) Cholesterol/HDL Ratio 2.7 Medications Current Medications Sodium Chloride 1,000 ml @ 1,000 mls/hr Q1H IV Last administered on 09/08/21at 14:45; Start 09/08/21 at 14:45; Stop 09/08/21 at 15:44; Status DC Iohexol (Omnipaque 300 Mg/ml) 60 ml 1X ONCE IV Last administered on 09/08/21at 15:10; Start 09/08/21 at 15:15; Stop 09/08/21 at 15:16; Status DC Info (CONTRAST GIVEN -- Rx MONITORING) 1 each PRN DAILY PRN MC SEE COMMENTS; Start 09/08/21 at 15:15; Stop 09/10/21 at 15:14 Acetaminophen (Tylenol) 650 mg PRN Q6HRS PRN PO MILD PAIN / TEMP > 100.3'F Last administered on 09/08/21at 16:29; Start 09/08/21 at 15:30 Aspirin (Ecotrin) 81 mg DAILYWBKFT PO Last administered on 09/08/21at 16:00; Start 09/08/21 at 16:00 Aspirin (Aspirin Rectal Supp) 300 mg PRN DAILY PRN LA IF UNABLE TO TAKE PO; Start 09/08/21 at 15:30 Acetaminophen/ Hydrocodone Bitart (Lortab 5/325) 1 tab PRN Q4HRS PRN PO MODERATE TO SEVERE PAIN; Start 09/08/21 at 17:00 Lisinopril (Prinivil) 40 mg DAILY PO Last administered on 09/09/21at 05:20; Start 09/09/21 at 05:00 Methotrexate (Rheumatrex) 15 mg WEEKLY PO ; Start 09/15/21 at 09:00 Prednisone (Prednisone) 1 mg DAILY PO ; Start 09/09/21 at 09:00 Acetaminophen (Tylenol) 1,300 mg BID PO ; Start 09/08/21 at 21:00 Non-Formulary Medication (Biotin ) 1,000 mcg DAILYWBKFT PO ; Start 09/09/21 at 08:00; Status UNV Pantoprazole Sodium (Protonix) 40 mg DAILYAC PO ; Start 09/09/21 at 07:30 Potassium Chloride (Klor-Con) 40 meq 1X ONCE PO ; Start 09/08/21 at 17:00; Stop 09/08/21 at 17:01; Status DC Furosemide (Lasix) 20 mg DAILY PO ; Start 09/08/21 at 17:00 Hydralazine HCl (Apresoline Inj) 10 mg PRN Q4HRS PRN IVP ELEVATED BP, SEE COMMENTS; Start 09/09/21 at 09:15; Status UNV Labetalol HCl (Normodyne Iv Push) 20 mg PRN Q2HRS PRN IVP HYPERTENSION Last administered on 09/09/21at 09:27; Start 09/09/21 at 09:15 Active Scripts Active Reported [orencia] Lisinopril 40 Mg Tablet 1 Tab PO DAILY Meclizine Hcl 25 Mg Tablet 25 Mg PO Q4HRS PRN Biotin 800 Mcg Tablet 1,000 Mcg PO DAILYWBKFT Calcium + D Soft Chewable Tab (Ca Carbonate/Vitamin D3/Vit K) 1 Each Tab.chew 1 Each PO BID Hydrocodone-Apap 10-325 (Hydrocodone Bit/Acetaminophen) 1 Each Tablet 0.5 Tab PO Q4HRS PRN Potassium Chloride 10 Meq Tablet.er 1 Tab PO QODAY Furosemide 40 Mg Tablet 1 Tab PO QODAY Apriso (Mesalamine) 0.375 Gm Cap.er.24h 2 Cap PO BID Omeprazole 40 Mg Capsule.dr 2 Cap PO DAILY Arthritis Pain Reliever (Acetaminophen) 650 Mg Tablet.er 1,300 Mg PO BID Allergy Medication (Diphenhydramine Hcl) 25 Mg Capsule 180 Mg PO DAILY Vitamin E (Vitamin E Mixed) 400 Unit Capsule 400 Unit PO DAILY Vitamin D (Cholecalciferol (Vitamin D3)) 400 Unit Capsule 400 Unit PO DAILY Prednisone 1 Mg Tablet 1 Mg PO DAILY Folic Acid 0.4 Mg Tablet 0.4 Mg PO DAILY Methotrexate (Methotrexate Sodium) 2.5 Mg Tablet 6 Tab PO WEEKLY Vitals/I & O Vital Sign - Last 24 Hours 09/08/21 09/08/21 09/08/21 09/08/21 14:38 15:04 15:13 15:28 Temp 97.7 97.7 Pulse 86 68 86 72 Resp 20 18 18 B/P (MAP) 183/87 (119) 174/75 (108) 180/87 (118) 175/80 (111) Pulse Ox 93 91 94 100 O2 Delivery Room Air Room Air Room Air Room Air 09/08/21 09/08/21 09/08/21 09/08/21 15:43 15:58 18:00 19:02 Temp 98.3 98.3 Pulse 84 72 78 Resp 16 16 30 B/P (MAP) 189/87 (121) 189/85 (119) 191/86 (121) Pulse Ox 89 92 O2 Delivery Room Air Room Air Room Air Room Air 09/08/21 09/08/21 09/08/21 09/09/21 19:30 20:00 23:26 03:35 Temp 98.1 98.9 98.1 98.1 98.9 98.1 Pulse 69 80 72 Resp 20 22 B/P (MAP) 171/95 (120) 181/82 (115) 218/86 (130) Pulse Ox 94 91 92 O2 Delivery Room Air Room Air Room Air Room Air 09/09/21 09/09/21 05:20 09:27 Pulse 72 72 B/P (MAP) 218/86 205/86 Intake and Output 09/08/21 09/08/21 09/09/21 15:00 23:00 07:00 Output Total 250 ml Balance -250 ml Justicifation of Admission Dx: Justifications for Admission: Justification of Admission Dx: N/A MELQUIADES WANG MD Sep 09, 2021 13:50
--- NOTE | 2021-09-09 14:21 | PDOC ---
[facility] PROGRESS NOTE Date of Service DOS: DATE: 09/09/21 TIME: 14:18 Chief Complaint Chief Complaint accelerated hypertension, hypertensive emergency TIA code stroke called weakness, debility Rheumatoid arthritis htn Chronic diastolic CHF, lasix Pending repeat CT History of Present Illness History of Present Illness 86 year old female who lives at the [facility] living. Today, she was fine this AM, then near lunch time had a sudden change of confusion and an inablity to speak. Before lunch and she did not eat, she was confused and says she couldnt get words out. She is not aware of the date currently and is still a little confused compared to her baseline per her son. She has a history of rheumatoid arthritis on methotrexate , HTN w She complains of headache, and is getting her second dose of tylenol now. Blood glucose 120's for EMS. BP was greater than 200 in ER, now down to 180 No blood thinners taken 09/09/2021 No acute events overnight. Patient's blood pressure is still labile will require IV NPO antihypertensive to maintain blood pressures less than 150/90. Pending repeat CT of the head because patient is unable to go to MRI due to spinal cord stimulator. Patient is confused but sitting up in recliner. Patient will need rehab after discharge from the hospital. Patient's chart, labs, images were reviewed and discussed with RN Vitals/I&O Vitals/I&O: Vital Signs Date Time Temp Pulse Resp B/P (MAP) Pulse Ox O2 Delivery O2 Flow Rate FiO2 09/09/21 09:27 72 205/86 09/09/21 03:35 98.1 22 92 Room Air 98.1 I & O 09/08/21 09/08/21 09/09/21 15:00 23:00 07:00 Output Total 250 ml Balance -250 ml Physical Exam General: Alert, Oriented X3, Cooperative, No acute distress Lungs: Clear Extremities: No cyanosis Skin: No breakdown, No significant lesion Labs Labs: Laboratory Tests Test 09/08/21 14:45 White Blood Count 7.5 x10^3/uL (4.0-11.0) Red Blood Count 4.06 x10^6/uL (3.50-5.40) Hemoglobin 10.9 g/dL (12.0-15.5) Hematocrit 34.8 % (36.0-47.0) Mean Corpuscular Volume 86 fL (79-100) Mean Corpuscular Hemoglobin 27 pg (25-35) Mean Corpuscular Hemoglobin Concent 31 g/dL (31-37) Red Cell Distribution Width 22.5 % (11.5-14.5) Platelet Count 324 x10^3/uL (140-400) Neutrophils (%) (Auto) 71 % (31-73) Lymphocytes (%) (Auto) 15 % (24-48) Monocytes (%) (Auto) 12 % (0-9) Eosinophils (%) (Auto) 1 % (0-3) Basophils (%) (Auto) 1 % (0-3) Neutrophils # (Auto) 5.4 x10^3/uL (1.8-7.7) Lymphocytes # (Auto) 1.1 x10^3/uL (1.0-4.8) Monocytes # (Auto) 0.9 x10^3/uL (0.0-1.1) Eosinophils # (Auto) 0.1 x10^3/uL (0.0-0.7) Basophils # (Auto) 0.1 x10^3/uL (0.0-0.2) Toxic Granulation Slight Platelet Estimate Adequate (ADEQUATE) Large Platelets Mod Anisocytosis Mod Ovalocytes Occ Acanthocytes Occ Prothrombin Time 12.4 SEC (11.7-14.0) Prothromb Time International Ratio 0.9 (0.8-1.1) Activated Partial Thromboplast Time 29 SEC (24-38) Sodium Level 139 mmol/L (136-145) Potassium Level 3.4 mmol/L (3.5-5.1) Chloride Level 98 mmol/L (98-107) Carbon Dioxide Level 31 mmol/L (21-32) Anion Gap 10 (6-14) Blood Urea Nitrogen 14 mg/dL (7-20) Creatinine 0.9 mg/dL (0.6-1.0) Estimated GFR (Cockcroft-Gault) 59.2 Glucose Level 109 mg/dL (70-99) Hemoglobin A1c 6.0 % (4.8-5.6) Calcium Level 8.3 mg/dL (8.5-10.1) Troponin I High Sensitivity 14 ng/L (4-50) Triglycerides Level 74 mg/dL (0-150) Cholesterol Level 194 mg/dL (0-200) LDL Cholesterol, Calculated 106 mg/dL (0-100) VLDL Cholesterol, Calculated 15 mg/dL (0-40) Non-HDL Cholesterol Calculated 121 mg/dL (0-129) HDL Cholesterol 73 mg/dL (40-60) Cholesterol/HDL Ratio 2.7 Assessment and Plan Assessmemt and Plan Problems Medical Problems: (1) Aphasia Status: Acute (2) Dysarthria Status: Acute Comment Review of Relevant I have reviewed the following items jesica (where applicable) has been applied. Medications: Current Medications Medications (Trade) Dose Ordered Sig/Ellyn Route PRN Reason Start Time Stop Time Status Last Admin Dose Admin Sodium Chloride 1,000 ml @ 1,000 mls/hr Q1H IV 09/08/21 14:45 09/08/21 15:44 DC 09/08/21 14:45 Iohexol (Omnipaque 300 Mg/ml) 60 ml 1X ONCE IV 09/08/21 15:15 09/08/21 15:16 DC 09/08/21 15:10 Acetaminophen (Tylenol) 650 mg PRN Q6HRS PRN PO MILD PAIN / TEMP > 100.3'F 09/08/21 15:30 09/08/21 16:29 Aspirin (Ecotrin) 81 mg DAILYWBKFT PO 09/08/21 16:00 09/08/21 16:00 Lisinopril (Prinivil) 40 mg DAILY PO 09/09/21 05:00 09/09/21 05:20 Labetalol HCl (Normodyne Iv Push) 20 mg PRN Q2HRS PRN IVP HYPERTENSION 09/09/21 09:15 09/09/21 09:27 Justifications for Admission TIA Indications Hemodynamically unstable?: Yes Persistent neurologic signs?: No Cardiomyopathy/Valvular diseas: No Severe hypertension?: Yes Cardiac arrhythmia?: No Other Justification TERRA CROW MD Sep 09, 2021 14:20
[2021-09-09 15:00] VITALS: BP 178/78
[2021-09-09] MEDS: ACETAMINOPHEN 325 MG TABLET. PO PRN (17:00)
[2021-09-09 19:35] VITALS: BP 155/70
[2021-09-09 23:50] VITALS: BP 181/79
[2021-09-10 03:11] VITALS: BP 182/78
[2021-09-10 07:00] VITALS: BP 143/68
[2021-09-10] MEDS ORDERED: SPIRONOLACTONE 25 MG TABLET PO SCH (09:00)
[2021-09-10] MEDS: ASPIRIN ENTERIC COATED 81 MG TABLET.DR. PO SCH (09:12)
[2021-09-10] MEDS: PANTOPRAZOLE 40 MG TABLET.DR. PO SCH (09:12)
[2021-09-10] MEDS: predniSONE 1 MG TABLET PO SCH (09:12)
[2021-09-10] MEDS: FUROSEMIDE 20 MG TABLET PO SCH (09:12)
[2021-09-10] MEDS: ACETAMINOPHEN 325 MG TABLET. PO SCH (09:13)
[2021-09-10] MEDS: LISINOPRIL 20 MG TABLET PO SCH (09:13)
[2021-09-10 11:00] VITALS: BP 160/74
[2021-09-10 11:30] LABS: BASO # 0.1 x10^3/uL (0.0-0.2); BASO % 1 % (0-3); EOS % 0 % (0-3); HEMATOCRIT 34.5 % (36.0-47.0); HEMOGLOBIN 10.9 g/dL (12.0-15.5); LYMPH # 0.5 x10^3/uL (1.0-4.8); LYMPH % 4 % (24-48); MEAN CORPUSCULAR HEMOGLOBIN 27 pg (25-35); MEAN CORPUSCULAR HGB CONC 32 g/dL (31-37); MEAN CORPUSCULAR VOLUME 86 fL (79-100); MONO # 0.9 x10^3/uL (0.0-1.1); MONO % 9 % (0-9); NEUT # 9.2 x10^3/uL (1.8-7.7); NEUT % 86 % (31-73); PLATELET COUNT 323 x10^3/uL (140-400); RED BLOOD COUNT 4.01 x10^6/uL (3.50-5.40); RED CELL DISTRIBUTION WIDTH 22.6 % (11.5-14.5); WHITE BLOOD COUNT 10.8 x10^3/uL (4.0-11.0)
[2021-09-10 11:44] LABS: CALCIUM 8.4 mg/dL (8.5-10.1); CREATININE 0.6 mg/dL (0.6-1.0); GFR 94.6; MAGNESIUM 1.7 mg/dL (1.8-2.4)
[2021-09-10 11:46] LABS: POTASSIUM 2.9 mmol/L (3.5-5.1)
[2021-09-10] MEDS ORDERED: AMLO-186 PO (11:47)
[2021-09-10] MEDS ORDERED: ASPI-886 PO (11:47)
--- NOTE | 2021-09-10 11:51 | SNU/HH DC ---
DISCHARGE WITH HOME HEALTH DISCHARGE INFORMATION: Discharge Date: Sep 10, 2021 Final Diagnosis: Problems Medical Problems: (1) Aphasia Status: Acute (2) Dysarthria Status: Acute Condition on Discharge: Stable CODE STATUS: Code Status: Full HOME HEALTH: Face to Face: I certify this patient is under my care and that I, or a nurse practitioner or physician's assistant guest services manager working with me, had a face to face encounter that meets the physician face to face encounter requirements with this patient on []. Medical Complications: Dementia, HTN Fpc For: Assess Cardiopulm Status, Assess & Educate Safety, Medication Management RN For Eval/Treatment: Yes Physical Therapy For: Evalulation/Treatment Occupational Therapy For: Evaluation/Treatment Speech Language Pathology For: Evaluation/Treatment Home Health Aide For: Self-care Pt Meets Homebound Status: Poor coordination w/ amb., Extreme weakness w/ amb., Limited distance walking, Poor cognition, Unable to negotiate home POST DISCHARGE ORDERS: Activity Instructions for Disc: Resume previous activity FOLLOW-UP: Follow up with: PCP within 2 weeks of discharge Follow Up With: Neurology as needed DC TO SNF LABS: CBC, CMP CERTIFICATION STATEMENT: Certification Statement: Certification Statement: Based on the above finding, I certify that this patient is confined to the home and needs intermittent senior living care, physical therapy and/or speech therapy, or continues to need occupational therapy.~ This patient is under my care, and I have initiated the establishment of the plan of care.~ This patient will be followed by myself or a community physician who will periodically review the plan of care. Home Meds Active Scripts Aspirin (ASPIRIN EC) 81 Mg Tablet.dr, 81 MG PO DAILYWBKFT for stroke prevention for 30 Days, #30 TAB.SR Prov:TERRA CROW MD 09/10/21 Amlodipine Besylate (AMLODIPINE BESYLATE) 5 Mg Tablet, 10 MG PO QHS for BLOOD PRESSURE for 30 Days, #60 TAB Prov:TERRA CROW MD 09/10/21 Reported Medications [orencia] No Conflict Check 04/13/15 Lisinopril (LISINOPRIL) 40 Mg Tablet, 1 TAB PO DAILY, #30 TAB 5 Refills 11/22/14 Meclizine Hcl (MECLIZINE HCL) 25 Mg Tablet, 25 MG PO Q4HRS PRN for NAUSEA, TAB 11/22/14 Biotin (BIOTIN) 800 Mcg Tablet, 1000 MCG PO DAILYWBKFT 11/22/14 Ca Carbonate/Vitamin D3/Vit K (CALCIUM + D SOFT CHEWABLE TAB) 1 Each Tab.chew, 1 EACH PO BID, TAB.CHEW 11/22/14 Hydrocodone Bit/Acetaminophen (HYDROCODONE-APAP 10-325 ) 1 Each Tablet, 0.5 TAB PO Q4HRS PRN for PAIN, #60 TAB 11/22/14 Potassium Chloride (POTASSIUM CHLORIDE) 10 Meq Tablet.er, 1 TAB PO QODAY, #90 TAB 1 Refill 11/22/14 Furosemide (FUROSEMIDE) 40 Mg Tablet, 1 TAB PO QODAY, #30 TAB 5 Refills 11/22/14 Mesalamine (APRISO) 0.375 Gm Cap.er.24h, 2 CAP PO BID, #120 CAP 3 Refills 11/22/14 Omeprazole (OMEPRAZOLE) 40 Mg Capsule.dr, 2 CAP PO DAILY, #30 CAP 3 Refills 11/22/14 Acetaminophen (ARTHRITIS PAIN RELIEVER) 650 Mg Tablet.er, 1300 MG PO BID 11/22/14 Diphenhydramine Hcl (ALLERGY MEDICATION) 25 Mg Capsule, 180 MG PO DAILY 11/22/14 Vitamin E Mixed (VITAMIN E) 400 Unit Capsule, 400 UNIT PO DAILY 11/22/14 Cholecalciferol (Vitamin D3) (VITAMIN D) 400 Unit Capsule, 400 UNIT PO DAILY 11/22/14 Prednisone (Prednisone) 1 Mg Tablet, 1 MG PO DAILY 11/22/14 Folic Acid (FOLIC ACID) 0.4 Mg Tablet, 0.4 MG PO DAILY, TAB 11/22/14 Methotrexate Sodium (METHOTREXATE) 2.5 Mg Tablet, 6 TAB PO WEEKLY, #24 TAB 1 Refill 11/22/14 TERRA CROW MD Sep 10, 2021 11:51
[2021-09-10] MEDS ORDERED: MAGNESIUM SULFATE 2GM 50 ML IV ONE (13:00)
[2021-09-10] MEDS ORDERED: POTASSIUM CHLORIDE 20 MEQ TABLET.ER. PO ONE (13:00)
[2021-09-10 15:00] VITALS: BP 163/67
[2021-09-10 16:52] LABS: CALCIUM 8.4 mg/dL (8.5-10.1); CREATININE 0.7 mg/dL (0.6-1.0); GFR 79.2; MAGNESIUM 2.4 mg/dL (1.8-2.4); POTASSIUM 3.8 mmol/L (3.5-5.1)
--- NOTE | 2021-09-10 17:19 | RAD ---
Exam Date: 09/09/2021 4:[address] HEAD/BRAIN WO Indication: Reason: Follow-up TIA, aphasia, cannot have MRI due to spinal cord stimulator / Spl. Inst ructions: / History: . TECHNIQUE: Head CT was performed without intravenous contrast. One or more of the following dose re duction techniques were utilized: *Automated exposure control (AEC) *Adjustment of mA and/or kV according to patient size *Use of iterative reconstruction technique *CT scan done according to ALARA, or ALARA/IMAGE GENTLY COMPARISON: Head CT from September 08, 2021 FINDINGS: The ventricles and sulci are prominent consistent with cerebral volume loss. Patchy ill-defined low attenuation areas in the subcortical and periventricular white matter bilaterally are consistent with microvascular disease. There is no evidence of acute intracranial hemorrhage, extra-axial collecti on, mass effect, midline shift, or acute territorial infarct. No lesion of the skull base or the calv arium is seen. The visualized paranasal sinuses, mastoid air cells and orbits are normal in appearanc e. IMPRESSION: No evidence for acute intracranial abnormality. Volume loss and microvascular disease. Electronically signed by: Zenon Lorenzo MD (09/10/2021 5:17 PM) [facility]
--- NOTE | 2021-09-10 18:04 | NUR ---
Discharge Note: WING DOMINGO[address] [facility] Discharge instructions and discharge home medications reviewed with Other facility and a copy given. All questions have been answered and understanding verbalized. The piper notified and report given. Family at bedside and educated on new prescriptions. Verbalized understanding.
--- NOTE | 2021-09-12 15:28 | PDOC3 ---
[facility]-Discharge Summary Date of Admission: Date of Admission: Sep 08, 2021 Date of Discharge: Date of Discharge: Sep 10, 2021 Discharge Diagnosis: Discharge Diagnosis: accelerated hypertension, hypertensive emergency TIA code stroke called weakness, debility Rheumatoid arthritis htn Chronic diastolic CHF, lasix Hospital Course: Hospital Course: 86 year old female who lives at the [facility]. Today, she was fine this AM, then near lunch time had a sudden change of confusion and an inablity to speak. Before lunch and she did not eat, she was confused and says she couldnt get words out. She is not aware of the date currently and is still a little confused compared to her baseline per her son. She has a history of rheumatoid arthritis on methotrexate , HTN w She complains of headache, and is getting her second dose of tylenol now. Blood glucose 120's for EMS. BP was greater than 200 in ER, now down to 180 No blood thinners taken 09/09/2021 No acute events overnight. Patient's blood pressure is still labile will require IV NPO antihypertensive to maintain blood pressures less than 150/90. [address] of the head because patient is unable to go to MRI due to spinal cord stimulator. Patient is confused but sitting up in recliner. Patient will need rehab after discharge from the hospital. Patient's chart, labs, images were reviewed and discussed with RN Patient evaluate by neurology and recommended blood pressure control and secondary stroke prevention. PT recommended SNF placement however family wanted patient home with home health. Discuss with family and still wanted to go home with home health. Other resources for nursing facilities provided. Patient will go home with [facility]. Rest of hospital course was uneventful. Disposition: Disposition/Orders: D/C to Home w/ HH Activity: Activity: Resume previous activity Diet: Diet: Cardiac Medications: Home Meds Active Scripts Aspirin (ASPIRIN EC) 81 Mg Tablet., 81 MG PO DAILYWBKFT for stroke prevention for 30 Days, #30 TAB.SR Prov:TERRA CROW MD 09/10/21 Amlodipine Besylate (AMLODIPINE BESYLATE) 5 Mg Tablet, 10 MG PO QHS for BLOOD PRESSURE for 30 Days, #60 TAB Prov:TERRA CROW MD 09/10/21 Reported Medications [orencia] No Conflict Check 04/13/15 Lisinopril (LISINOPRIL) 40 Mg Tablet, 1 TAB PO DAILY, #30 TAB 5 Refills 11/22/14 Meclizine Hcl (MECLIZINE HCL) 25 Mg Tablet, 25 MG PO Q4HRS PRN for NAUSEA, TAB 11/22/14 Biotin (BIOTIN) 800 Mcg Tablet, 1000 MCG PO DAILYWBKFT 11/22/14 Ca Carbonate/Vitamin D3/Vit K (CALCIUM + D SOFT CHEWABLE TAB) 1 Each Tab.chew, 1 EACH PO BID, TAB.CHEW 11/22/14 Hydrocodone Bit/Acetaminophen (HYDROCODONE-APAP 10-325 ) 1 Each Tablet, 0.5 TAB PO Q4HRS PRN for PAIN, #60 TAB 11/22/14 Potassium Chloride (POTASSIUM CHLORIDE) 10 Meq Tablet.er, 1 TAB PO QODAY, #90 TAB 1 Refill 11/22/14 Furosemide (FUROSEMIDE) 40 Mg Tablet, 1 TAB PO QODAY, #30 TAB 5 Refills 11/22/14 Mesalamine (APRISO) 0.375 Gm Cap.er.24h, 2 CAP PO BID, #120 CAP 3 Refills 11/22/14 Omeprazole (OMEPRAZOLE) 40 Mg Capsule.dr, 2 CAP PO DAILY, #30 CAP 3 Refills 11/22/14 Acetaminophen (ARTHRITIS PAIN RELIEVER) 650 Mg Tablet.er, 1300 MG PO BID 11/22/14 Diphenhydramine Hcl (ALLERGY MEDICATION) 25 Mg Capsule, 180 MG PO DAILY 11/22/14 Vitamin E Mixed (VITAMIN E) 400 Unit Capsule, 400 UNIT PO DAILY 11/22/14 Cholecalciferol (Vitamin D3) (VITAMIN D) 400 Unit Capsule, 400 UNIT PO DAILY 11/22/14 Prednisone (Prednisone) 1 Mg Tablet, 1 MG PO DAILY 11/22/14 Folic Acid (FOLIC ACID) 0.4 Mg Tablet, 0.4 MG PO DAILY, TAB 11/22/14 Methotrexate Sodium (METHOTREXATE) 2.5 Mg Tablet, 6 TAB PO WEEKLY, #24 TAB 1 Refill 11/22/14 Scheduled Acetaminophen (Arthritis Pain Reliever), 1,300 MG PO BID, (Reported) Amlodipine Besylate (Amlodipine Besylate), 10 MG PO QHS Aspirin (Aspirin Ec), 81 MG PO DAILYWBKFT Biotin (Biotin), 1,000 MCG PO DAILYWBKFT, (Reported) Ca Carbonate/Vitamin D3/Vit K (Calcium + D Soft Chewable Tab), 1 EACH PO BID, (Reported) Cholecalciferol (Vitamin D3) (Vitamin D), 400 UNIT PO DAILY, (Reported) Diphenhydramine Hcl (Allergy Medication), 180 MG PO DAILY, (Reported) Folic Acid (Folic Acid), 0.4 MG PO DAILY, (Reported) Furosemide (Furosemide), 1 TAB PO QODAY, (Reported) Lisinopril (Lisinopril), 1 TAB PO DAILY, (Reported) Mesalamine (Apriso), 2 CAP PO BID, (Reported) Methotrexate Sodium (Methotrexate), 6 TAB PO WEEKLY, (Reported) Omeprazole (Omeprazole), 2 CAP PO DAILY, (Reported) Potassium Chloride (Potassium Chloride), 1 TAB PO QODAY, (Reported) Prednisone (Prednisone), 1 MG PO DAILY, (Reported) Vitamin E Mixed (Vitamin E), 400 UNIT PO DAILY, (Reported) Scheduled PRN Hydrocodone Bit/Acetaminophen (Hydrocodone-Apap 10-325 ), 0.5 TAB PO Q4HRS PRN for PAIN, (Reported) Meclizine Hcl (Meclizine Hcl), 25 MG PO Q4HRS PRN for NAUSEA, (Reported) Miscellaneous Medications [orencia], (Reported) Total Time: Total Time: Total time spent was 32 minutes in preparing scripts, discharge planning with SWI and RN and preparing this discharge summary Patient seen and examined on day of discharge. No acute abnormal findings. Justicifation of Admission Dx: Justifications for Admission: Justification of Admission Dx: N/A TERRA CROW MD Sep 12, 2021 15:28
[2021-09-15] MEDS ORDERED: METHOTREXATE SODIUM 2.5 MG TABLET PO SCH (09:00)
== END 2021-09-10 18:05 | disposition home health service (06) ==
LOC: ER 14:36 → 6 SOUTH 15:28
PROVIDERS: ADMIT Internal Medicine; ATTEND Internal Medicine
DX: I16.1 Hypertensive emergency (principal); I13.0 Hypertensive heart and chronic kidney disease with heart failure and stage 1 through stage 4 chronic kidney disease, or unspecified chronic kidney disease; I50.32 Chronic diastolic (congestive) heart failure; N18.30 Chronic kidney disease, stage 3 unspecified; G45.9 Transient cerebral ischemic attack, unspecified; I63.9 Cerebral infarction, unspecified; I67.4 Hypertensive encephalopathy; F03.90 Unspecified dementia, unspecified severity, without behavioral disturbance, psychotic disturbance, mood disturbance, and anxiety; M06.9 Rheumatoid arthritis, unspecified; R47.01 Aphasia; R47.1 Dysarthria and anarthria; R29.703 NIHSS score 3; K21.9 Gastro-esophageal reflux disease without esophagitis; K58.9 Irritable bowel syndrome, unspecified; Z87.891 Personal history of nicotine dependence; Z79.899 Other long term (current) drug therapy; Z98.890 Other specified postprocedural states; Z79.82 Long term (current) use of aspirin
CPT/HCPCS: 36415; 70450; 70496; 70498; 80048; 80061; 83036; 83735; 84484; 85025; 85610; 85730; 92610; 93005; 96361; 96365; 96366; 96375; 97162; 97166; 97530; 99285; G0378; J3475; J3490; J7030; J7512; Q9967; G0379